=== PATIENT | female | born 1975 | race Caucasian/White ===

== ENCOUNTER 2019-01-12 12:00 | Observation (INO) ==
--- NOTE | 2019-01-12 12:26 | Diag Imaging Result Doc PS360 ---
CT HEAD W/O CONTRAST - 01/12/2019 INDICATION: stroke like s/s COMPARISON: None FINDINGS: The ventricles and sulci are normal in size and contour. No intracranial mass or hemorrhage. The skull is intact. There is a small amount of fluid or mucus in the maxillary sinuses bilaterally. Other sinuses are clear.. IMPRESSION: No intracranial abnormality. This exam was performed using automated exposure control, adjustment of mA or kV according to patient size, and/or use of iterative reconstruction technique Electronically signed by Arcenio Pandey 01/12/2019 12:23 PM
[2019-01-12] MEDS ORDERED: NS 500 ML ONE (12:43)
--- NOTE | 2019-01-12 12:50 | Diag Imaging Result Doc PS360 ---
CHEST-PORTABLE - 01/12/2019 INDICATION: stroke like symptoms COMPARISON: 09/09/2018 FINDINGS: The lungs are normally expanded and clear. Heart size and mediastinal contours are normal. No pneumothorax or pleural effusion. IMPRESSION: Negative exam. Electronically signed by Arcenio Pandey 01/12/2019 12:48 PM
[2019-01-12 12:54] LABS: BASO# 0.08 X1000 (0.0-0.2); BASO% 0.9 % (0.0-0.8); EOS# 0.34 X1000 (0.0-0.7); EOS% 3.7 % (0.0-10.0); HEMOGLOBIN 11.1 g/dL (12.0-16.0); LYMPH# 2.89 X1000 (1.2-3.4); LYMPH% 31.2 % (20.5-51.1); MCH 26.6 PG (27-31); MCHC 31.7 g/dL (33-37); MCV 83.7 FL (81-99); MONO# 0.66 X1000 (0.11-0.59); MONO% 7.1 % (1.7-9.3); MPV 11.1 FL (7.4-10.4); NEUT# 5.29 X1000 (1.4-6.5); NEUT% 57.1 % (42.2-75.2); PLT 382 X1000 (130-400); RBC 4.18 XMIL (4.2-5.4); RDW 16.1 % (11.5-14.5); WBC 9.26 X1000 (4.8-10.8)
[2019-01-12] MEDS ORDERED: NS 500 ML IV ONE (12:55)
[2019-01-12 12:57] LABS: INR 0.88; PROTIME 12.7 Seconds (11.0-16.0)
[2019-01-12 12:58] LABS: PTT 27.9 Seconds (22.3-41.8)
[2019-01-12 13:12] LABS: URINE SOURCE CATH
[2019-01-12 13:15] LABS: AGAP 10; BUN 11 mg/dL (8-22); CHLORIDE 106 mmol/L (98-107); COSMO 276; CREATININE 0.9 mg/dL (0.5-0.9); GLUCOSE 109 mg/dL (70-104); POTASSIUM 3.8 mmol/L (3.5-5.1); SODIUM 138 mmol/L (136-145); TCO2 22 mmol/L (25-35)
[2019-01-12 13:16] LABS: BILIRUBIN URINE NEGATIVE (NEGATIVE); BLOOD URINE NEGATIVE (NEGATIVE); COLOR STRAW; GLUCOSE URINE NEGATIVE (NEGATIVE); KETONE URINE NEGATIVE (NEGATIVE); LEUKOCYTES URINE NEGATIVE (NEGATIVE); NITRITE URINE NEGATIVE (NEGATIVE); PH URINE 6.5; PROTEIN URINE NEGATIVE (NEGATIVE); TURBIDITY URINE CLEAR (CLEAR); UROBILINOGEN URINE NORMAL (NORMAL)
[2019-01-12 13:16] LABS: ALB/GLOB RATIO 1.3; ALBUMIN 4.3 g/dL (3.5-5.0); ALKALINE PHOSPHATASE 97 U/L (32-104); CALCIUM 8.5 mg/dL (8.8-10.2); ESTIMATED GFR > 60; GOT 17 U/L (10-30); GPT 17 U/L (10-36); TOTAL BILIRUBIN 0.23 mg/dL (0.20-1.00); TOTAL PROTEIN 7.5 g/dL (6.3-8.3)
[2019-01-12 13:18] LABS: UR EPITHELIAL CELLS <10 /HPF (<10); URINE BACTERIA NEGATIVE /HPF; URINE RBC <10 /HPF (<10); URINE WBC <10 /HPF (<10)
[2019-01-12] MEDS ORDERED: MOTRIN PO ONE (16:35)
[2019-01-12] MEDS ORDERED: VENTOLIN HFA INH PRN (16:41)
[2019-01-12 16:59] LABS: UR AMPHETAMINES QUAL NONE DETECTED (NONE DETECT); UR BARBITUATES QUAL NONE DETECTED (NONE DETECT); UR BENZODIAZEPIN QUAL NONE DETECTED (NONE DETECT); UR CANNABINOIDS QUAL NONE DETECTED (NONE DETECT); UR COCAINE QUAL NONE DETECTED (NONE DETECT); UR METHADONE QUAL NONE DETECTED (NONE DETECT); UR OPIATES QUAL NONE DETECTED (NONE DETECT); UR OXYCODONE QUAL NONE DETECTED (NONE DETECT); UR PCP QUAL NONE DETECTED (NONE DETECT)
[2019-01-12 18:03] LABS: HEMOGLOBIN A1C 5.7 % (4.8-6.0)
--- NOTE | 2019-01-12 18:19 | HISTORY AND PHYSICAL ---
PRIMARY CARE PROVIDER: Dr. Brandt. CHIEF COMPLAINT: Left-sided weakness. HISTORY OF PRESENT ILLNESS: Mrs. Dumont is a 43-year-old female with a history of TIAs in the past, PFO, migraine headaches, who presents with acute onset of left-sided weakness. Symptoms began while at [employer] today. She was singing and started having headache and immediately had worsening of headache, almost as if a popping sensation followed by significant left-sided weakness, slowing of speech, and some mild slurred speech. She reports these are the same, exact symptoms that happened to her last year. She was sent to [facility] and diagnosed with TIA. At that time, she had bubble study done and reports that she was found to have a patent foramen ovale. She states that her heart doctor, Dr. Holt, does not believe she needs repair. She is followed by Dr. Armstrong in [place] as well. When she got to the hospital, head CT was done which was negative. Laboratory data unremarkable. She denies any chest pain, shortness of breath, nausea, or vomiting. Her symptoms have improved significantly. She is able to move her left side but it is weak compared to the right. Neurology at [facility], Dr. Cheema, was consulted via teleneurology. They felt that since her symptoms are improving, that she was not a candidate for tPA. She has gotten an aspirin. Her hemodynamics are stable. She will be admitted for further treatment and evaluation. PAST MEDICAL HISTORY: 1. TIA in the past. 2. PFO. 3. Migraine headaches. 4. Trigeminal neuralgia. 5. Asthma. SURGICAL HISTORY: Cholecystectomy, C section, tubal ligation, and D and C. SOCIAL HISTORY: She denies tobacco, alcohol, or drug use. She is . is at the bedside. FAMILY HISTORY: Significant for stroke and diabetes, both parents are at the bedside as well. REVIEW OF SYSTEMS: A 14-point review of systems was obtained and found to be negative with the exception of the HPI. ALLERGIES: Steroids. HOME MEDICATIONS: Lindsey 60 mg daily, aspirin 81 mg daily, ProAir 8.5 grams inhaled every four hours, Zyrtec 5 mg daily. PHYSICAL EXAMINATION: VITAL SIGNS: Blood pressure is 118/73, heart rate 75, respiratory rate is 13, O2 saturation 100% on room air, temperature 98.2. GENERAL: This is an obese female lying in hospital bed in no acute distress. NEUROLOGICAL: The patient is oriented. She is awake and she follows commands. She has 3-4/5 strength in the left upper and lower extremities. Sensation is intact. HEENT: Head is atraumatic and normocephalic. Pupils are equal, round, and reactive to light. Oral mucosa is moist. NECK: Trachea is midline. There is no JVD. CHEST: Clear to auscultation. CARDIOVASCULAR: Regular rate and rhythm. S1, S2 is noted. No murmurs. GASTROINTESTINAL: Soft, nondistended, nontender. Bowel sounds positive. EXTREMITIES: No edema. Pulses are 2+ bilaterally. DIAGNOSTIC DATA: Head CT is negative. Chest x-ray is negative. EKG: Sinus rhythm without acute ST or T abnormalities. WBC 9.26, hemoglobin 11.1, hematocrit 35.0, platelet count 302. INR 0.88. Sodium 138, potassium 3.8, chloride 106, CO2 22, anion gap 10, BUN 11, creatinine 0.9, glucose 109, calcium 8.5. LFTs negative. UA negative. ASSESSMENT AND PLAN: 1. Stroke-like symptoms: Her symptoms are improving rapidly. Her speech is fairly clear at this time. Head CT is negative, which is reassuring. Will order an MRI for the morning, carotid ultrasound, and echocardiogram. Consult Neurology. Continue neuro checks and daily aspirin, while allowing for permissive hypertension. It is possible these are secondary to migraine headaches. Will await Neurology assessment in the morning. 2. Normocytic anemia: Iron studies have been ordered. Will treat accordingly. 3. History of patent foramen ovale: Aware. Echocardiogram is pending. No chest pain at this time. 4. Asthma: Continue her home medications. Overall stable, no wheezing. Chest x-ray is negative. 5. Deep venous thrombosis prophylaxis with Lovenox. Further recommendations to follow. Dictated by BRIAN Sow for Keegan Bergeron MD cc: BRIAN Sow MD
[2019-01-12 18:23] LABS: FREE T4 1.08 ng/dL (0.93-1.70)
--- NOTE | 2019-01-13 07:22 | EKG Report ---
Test Performed on : 01/12/2019 12:22:31 PM Test Reason : STROKE LIKE SX Blood Pressure : / mmHG Vent. Rate : 096 BPM Atrial Rate : 096 BPM P-R Int : 148 ms QRS Dur : 076 ms QT Int : 362 ms P-R-T Axes : 031 035 031 degrees QTc Int : 457 ms Normal sinus rhythm. Normal ECG When compared with ECG of 10-FEB-2017 21:59, No significant change was found Unconfirmed Result
[2019-01-13 07:30] LABS: HEMATOCRIT 32.8 % (37.0-47.0); HEMOGLOBIN 9.9 g/dL (12.0-16.0); MCH 25.9 PG (27-31); MCHC 30.2 g/dL (33-37); MCV 85.9 FL (81-99); MPV 11.3 FL (7.4-10.4); RBC 3.82 XMIL (4.2-5.4); RDW 16.4 % (11.5-14.5); WBC 5.59 X1000 (4.8-10.8)
[2019-01-13 07:59] LABS: AGAP 10; BUN 9 mg/dL (8-22); CALCIUM 8.4 mg/dL (8.8-10.2); CHLORIDE 108 mmol/L (98-107); COSMO 281; CREATININE 0.7 mg/dL (0.5-0.9); ESTIMATED GFR > 60; GLUCOSE 111 mg/dL (70-104); MAGNESIUM 2.2 mg/dL (1.5-2.7); POTASSIUM 3.6 mmol/L (3.5-5.1); SODIUM 141 mmol/L (136-145); TCO2 23 mmol/L (25-35)
[2019-01-13] MEDS ORDERED: ZYRTEC PO SCH (09:00)
[2019-01-13] MEDS: ASPIRIN PO SCH (09:19)
--- NOTE | 2019-01-13 11:49 | Diag Imaging Result Doc PS360 ---
EXAM: MRI BRAIN W/O CONTRAST 01/13/2019 HISTORY: left sided weakness TECHNIQUE: T1 sagittal and axial, T2, FLAIR, DWI axial and coronal gradient echo. COMMENT: There is an empty sella. There is a small lacunar lucency in the thalamus on the right. There is no evidence of mass effect, bleed, or abnormal extra-axial fluid collection. There is no evidence of restricted diffusion.There is a mucous retention cyst in the right maxillary sinus and some mucosal thickening in both maxillary sinuses. There may be acute left maxillary sinusitis. IMPRESSION: No evidence of acute intracranial disease. Maxillary sinusitis. Electronically signed by Todd Melo 01/13/2019 11:46 AM
[2019-01-13] MEDS: TYLENOL PO PRN ×2 (13:17→20:32)
--- NOTE | 2019-01-13 14:25 | PROGRESS NOTE ---
DATE: 01/13/2019 SUBJECTIVE: The patient is feeling much better. She is still having some heaviness at the level of the left side of the body, especially her left arm. MRI did not show any acute abnormality. Pending carotic ultrasound and echocardiogram report. OBJECTIVE: Vital Signs: Temperature 97.6 degrees, pulse 79, respiratory rate 18, blood pressure 131/72, oxygen saturation 98 on room air. HEENT: Head normocephalic. No trauma. PERRLA. Neck: Supple. No JVD. No masses. Central trachea. Chest: Clear to auscultation. No wheezing. No rales. Abdomen: Soft, nontender, nondistended. No hepatosplenomegaly. Extremities: No edema, no clubbing, no cyanosis. Neurological Examination: The patient is completely alert. She is oriented x3. She does have a little bit of left-sided weakness but much better compared with yesterday or the day before yesterday. Laboratory: WBC 5.5, hemoglobin 9.9, hematocrit 32.8, platelets 325,000. Sodium 141, potassium 3.6, chloride 108, bicarbonate 23, BUN 9, creatinine 0.7, glucose 111, calcium 8.4, magnesium 2.2. ASSESSMENT AND PLAN: 1. Admitted due to sudden onset of left-sided weakness. MRI of the head did not show any acute abnormality. Pending results of the carotic ultrasound and echocardiogram. She seems to be getting much better. Her weakness is almost resolved. We will continue to monitor, pending neurology department recommendations. 2. Normocytic anemia. Folic acid, vitamin B12, TSH within normal limits. 3. History of patent foramen ovale, aware. Echocardiogram is pending. No chest pain at this moment. 4. Asthma. Continue with home medications. Overall stable. No wheezing. Chest x-ray is negative. 5. Deep vein thrombosis prophylaxis with Lovenox. cc: Keegan Bergeron MD
--- NOTE | 2019-01-13 14:55 | CONSULTATION ---
DATE OF CONSULTATION: 01/13/2019 LOCATION: She is in room 316 B. HISTORY OF PRESENT ILLNESS: Ms. Dumont is 43 years old and she had episode with headache and left-sided weakness raising question of stroke or other neurologic event. History from the patient is that she felt well yesterday morning. While in Sunday school she felt a little bit odd and noticed that she was having onset of headache, which is common. Later, she had a sense that headache suddenly resolved and she could not move her left arm. She walked to the car without left leg difficulty. While riding in the car, she had a sense that her left leg was weak. She had some trouble finding her words and eventually seemed unable to speak. She believes she had to concentrate to understand what was said to her. Vision seemed blurred to the left. She did not cover one eye to better determine vision deficit. She did not lose consciousness. The left-sided symptoms were much improved this morning and almost completely resolved now, early afternoon, approximately 26-27 hours after onset. She reports history of almost identical episode about 2 years ago. She was at home then, reading newspaper and noticed suddenly she could not use her left arm. She tried to raise both arms and might have had some difficulty with the right but could not move her left arm. She eventually had left leg weakness. She reports being transported by helicopter and, during that transport, she became unable to speak. Symptoms resolved over a few days. Onset was accompanied by headache. She has had headaches episodically since her teens. Headaches are typically moderate to greater intensity and resolve in a few hours with a dose of acetaminophen and a nap. Occasionally, headache persists through the day and into the next day. Other than the 2 events mentioned above, she has not had neurologic deficit associated with headache. Caffeine intake is 2 or 3 cups of regular coffee daily. Her regular medicines are daily aspirin, cetirizine, Lindsey, and albuterol inhaler. Workup here includes lab showing nothing remarkable. Noncontrast CT of the head was unremarkable. Brain MRI done without contrast shows empty sella and nothing else remarkable. She has been afebrile. Heart rate has been steady 60s to 70s since admission, but was 104 on presentation. Systolic blood pressures have ranged 100s to 150s. PHYSICAL EXAMINATION: On exam, she is awake, alert, attentive, appropriate, cheerful, oriented. Speech is not dysarthric. Language function is intact on bedside testing. Memory is good. Head and neck are unremarkable. There is no meningismus. She has full visual rdz now tested by confrontational finger counting in all quadrants. Facial sensation is intact to pinprick and light touch testing. Facial motility is normal, symmetric. Gag is intact. Tongue is midline. Hearing is good. Shoulder shrug is equal. Strength is normal in the arms and legs. Tone is symmetric in the limbs. She did well on [id number]-rz-vdhg testing bilaterally. Sensation is intact to pinprick testing over the palms. Reflexes are 1+ symmetrically at the wrists. I did not test her gait. IMPRESSIONS: 1. Recent reported left-sided weakness. That has resolved. I do not have a definite explanation. The onset with headache, prior similar episode, and her other history of episodic headache typical of migraine suggests migraine as a possible explanation for recent episode. 2. She has risk factors for cerebrovascular ischemic problem include possible PFO and migraine. 3. Frequent episodic headaches. She reports headaches usually once every month or so. She has dependable relief with dsba-tvf-tudgbuf medicines. I encouraged her to be careful with caffeine. We discussed possibility of adding medicine for migraine prophylaxis if headaches become more frequent. She used sumatriptan in the past and we might try that again or other triptan if znkr-jfs-onemdhd medicines become insufficient. In light of her stable course and negative workup, I do not think we have to do anything further right now. She has Neurology followup with Dr. Armstrong in [place] and she can discuss the PFO management options with him. Thanks for asking Neurology to see Ms. Dumont. cc: MD BRODIE Crabtree III
--- NOTE | 2019-01-13 18:00 | ECHO REPORT ---
ORDER DATE: 01/12/2019 INDICATION: Stroke. FINDINGS: 1. The right atrium appears normal in size. 2. Trace tricuspid regurgitation. Insufficient data to accurately estimate the RV systolic pressure. 3. Normal right ventricular size and systolic function. 4. Trace pulmonic insufficiency. 5. Normal left atrial size at 3.7 cm. 6. No mitral valve prolapse. Trace mitral regurgitation. 7. Normal LV size, end-diastolic dimension of 4.3. Normal wall thicknesses with a posterior and interventricular septal wall thickness of 0.7 cm each. Normal LV systolic function. Estimated EF is 65% with normal wall motion. 8. Aortic valve opens well. No evidence of stenosis or insufficiency. 9. The aorta appears normal in visualized segments. 10. No pericardial effusion seen. 11. There is no evidence of luyxy-bo-dneh shunting visualized via injection of agitated saline contrast. This was not assessed with valsalva. A previous echo was reviewed from 03/2017 which clearly showed evidence for right to left shunting with injection of agitated saline contrast with valsalva and not present without valsalva. Her current study did not show color Doppler evidence for shunting across the intra-atrial septum. cc: MD Keegan Bonilla MD MTDD
[2019-01-14 07:58] LABS: HEMATOCRIT 34.3 % (37.0-47.0); HEMOGLOBIN 10.5 g/dL (12.0-16.0); MCH 26.3 PG (27-31); MCHC 30.6 g/dL (33-37); MCV 85.8 FL (81-99); MPV 11.1 FL (7.4-10.4); RDW 16.2 % (11.5-14.5); WBC 5.33 X1000 (4.8-10.8)
[2019-01-14 08:22] LABS: SODIUM 138 mmol/L (136-145)
[2019-01-14 08:23] LABS: AGAP 11; BUN 13 mg/dL (8-22); CALCIUM 8.6 mg/dL (8.8-10.2); CHLORIDE 106 mmol/L (98-107); COSMO 276; CREATININE 0.6 mg/dL (0.5-0.9); ESTIMATED GFR > 60; GLUCOSE 103 mg/dL (70-104); MAGNESIUM 2.1 mg/dL (1.5-2.7); POTASSIUM 3.7 mmol/L (3.5-5.1); TCO2 21 mmol/L (25-35)
[2019-01-14] MEDS ORDERED: ALLEGRA PO SCH (09:00)
[2019-01-14] MEDS: TYLENOL PO PRN (09:32)
[2019-01-14] MEDS: ASPIRIN PO SCH (09:32)
[2019-01-14 11:25] VITALS: BP 116/73
[2019-01-14] MEDS ORDERED: ZYRTEC PO SCH (21:00)
--- NOTE | 2019-01-15 13:09 | Carotid Study ---
DATE: 01/13/2019 PROCEDURE: Bilateral duplex and color flow imaging of the carotid arteries performed using the [employer] Vivid E9 Ultrasound System with a 9L-D transducer. REFERRING PHYSICIAN: Dr. Keegan Bergeron MD INTERPRETING PHYSICIAN: Bethany Issa MD FILM OR VIDEOTAPE EDITOR: Gina Kennedy Aida INDICATIONS: Transient ischemic attack. OBSERVED DATA RIGHT LEFT Brachial Blood Pressure Carotid Pulse Bruits: Carotid/Sub DIAGRAM OF ULTRASOUND IMAGING R L RIGHT INT EXT INT EXT LEFT Warren (cm/s) Warren (cm/s) Subclavian 156/0 Subclavian 133/0 CCA Proximal 104/21 CCA Proximal 113/30 CCA Distal 113/28 CCA Distal 84/25 Bulb 109/32 Bulb 69/24 ICA Proximal 99/21 ICA Proximal 101/25 ICA Mid 68/30 ICA Mid 74/26 ICA Distal 85/38 ICA Distal 98/44 ECA 92/15 ECA 108/16 Vertebral 53/23 Vertebral 63/18 ICA/CCA Ratio 0.88 ICA/CCA Ratio 0.89 % Stenosis 0%-39% % Stenosis 0%-39% PHYSICIAN INTERPRETATION: Normal bilateral carotid arterial study. cc: MD Howard Olivia CRNP
--- NOTE | 2019-01-15 21:46 | DISCHARGE SUMMARY ---
ADMISSION DATE: 01/12/2019 DISCHARGE DATE: 01/14/2019 CONSULTATIONS: Dr. Anne-Marie Peterson with Neurology. PERTINENT PROCEDURES: 1. Head CT: No intracranial abnormality. 2. Brain MRI: No evidence of acute intracranial disease, maxillary sinusitis. DISCHARGE DIAGNOSES: 1. Sudden onset of left-sided weakness. Head CT and brain MRI did not show anything acute. She was followed by Neurology with Dr. Peterson in her left-sided weakness has completely resolved. The onset was of headache prior to a similar episode and other history of episodic headache in typical of migraine, suggestive of migraine as a possible explanation for her left-sided weakness. Again, it has completely resolved. 2. Migraine headaches. See #1. 3. Frequent episodic headaches. She gets 1 usually every month or so. She does have relief with kbpl-hnc-nylpugy medicine. She has been educated to be careful with caffeine and also as well as the possibility of any medicines for migraine prophylaxis if her headaches become more frequent. She does have risk factors for cerebrovascular accident and ischemic problems that include possible patent foramen ovale, as well as migraine. Education was discussed with her with Dr. Peterson. She is to continue her follow-up with her neurologist Dr. Armstrong in [place] where they can discuss her patent foramen ovale management with options. 4. Normocytic anemia. Folic acid and B12 and TSH were within normal limits. 5. Patent foramen ovale. Aware. The patient did undergo an echocardiogram that showed an ejection fraction of 65% with normal wall motion and there was no evidence of jgeym-ls-yvmi shunting. 6. Asthma. No exacerbation. HOSPITAL COURSE: Briefly, Ms. Dumont is a 43-year-old female with a history of TIA in the past, PFO, and migraine headaches, who presented with acute onset of left-sided weakness. Symptoms began while she was sitting in [employer]. She was sitting and started having a headache and intermittently had worsening of her headache as almost a popping sensation followed by significant left-sided weakness, slurring of her speech and some mild slurred speech. She reports these exact same symptoms happened her a year ago. She was sent to [facility] and diagnosed with a TIA. At that time, she had a bubble study done. In that reports she was found to have a PFO. She follows a heart doctor Dr. Holt that does not believe she needs repair. She is followed by Dr. Armstrong in [place]. She did have a head CT that was negative. Her laboratory data was unremarkable. She had a followup brain MRI that was unremarkable as well as echocardiogram and carotid Doppler. She was assessed by our Neurology team. They do feel that this was more than likely one of her migraine headaches as she also has episodic headaches and she will need to follow up with her Neurologist, Dr. Armstrong, as well as her [facility] for further treatment and evaluation. Her symptoms have all improved and resolved. She is being discharged back home with self care. VITAL SIGNS: At time of discharge, temperature is 98.2 degrees, heart rate 100, respirations 20, blood pressure 116/73. O2 is 100% on room air. DISCHARGE DIET: Healthy heart. DISCHARGE MEDICATIONS: 1. Lindsey 60 mg p.o. daily. 2. Aspirin 81 mg p.o. daily. 3. ProAir inhaler 8.5 g inhaled q.4 hours p.r.n. 4. Zyrtec 5 mg p.o. daily. PERTINENT PROCEDURES: 1. Head CT: No intracranial abnormality. 2. Chest x-ray: Negative exam. 3. Echocardiogram: EF of 65% with normal wall motion abnormality. There was no evidence of yiyxi-mb-ziib shunting. 4. Brain MRI: No evidence of intracranial disease. Maxillary sinusitis. 5. Carotid Dopplers are still currently pending. FOLLOW UP: Ms. Dumont is being discharged back home with self care. She is to continue follow up with her regular neurologist as well as corporate compliance manager. She is to take all medications as prescribed. She can return to the ED or call 911 for any worsening of symptoms. Dictated by BRIAN Roth for Macario Coyne MD
== END 2019-01-14 13:56 | disposition home or self-care (01) ==
LOC: SUPCPDRO → ED 12:00 → INTOOBSV 12:01 → 3N 12:01 → SUATTDRO 12:01
PROVIDERS: ATTEND Internal Medicine
CPT/HCPCS: 51702; 70450; 70551; 71010; 71045; 80048; 80053; 80061; 80101; 80301; 80307; 80324; 80345; 80346; 80353; 80358; 80361; 80365; 81001; 81025; 82550; 82607; 82728; 82746; 82948; 83036; 83721; 83735; 83992; 84439; 84443; 84484; 85025; 85027; 85610; 85730; 93005; 93306; 93880; 97161; 99285; A9270; G0431; G0434; G0479; G0480; J7040; XXXXX